=== PATIENT | male | born 2005 | race Two or more races ===

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

== ENCOUNTER 2024-01-01 08:29 | Outpatient (OUT) | payer BC, SELFPAY ==
--- NOTE | 2024-01-01 08:36 | FL_ITS ---
The [address] [address] Patient Name: JOVANNY RIOS MRN: [id number] date: 2005 Sex: M Assigned Patient Location: [place] Current Patient Location: [place] Accession/Order Number: [id number] Exam Date: 01/01/2024 08:45 Report Date: 01/01/2024 11:00 At the request of: MITCHEL PERALES Procedure: FL upper GI w air PROCEDURE: FL upper GI w air, FL cineradiography COMPARISON: None. HISTORY: Chest Pain R07.9 TECHNIQUE: An air contrast upper gastrointestinal series was performed in the usual manner. Standard level fluoroscopic mode of operation utilized. FINDINGS: ESOPHAGUS:Multiple episodes of moderate gastroesophageal reflux extending to the thoracic inlet. No esophageal stricture, abnormal dilation, or appreciable mucosal irregularity. STOMACH: No obstruction, mass, or ulceration. Normal motility. DUODENUM:No ulceration or diverticulum. OTHER: Negative. FL/FL upper GI w air IMPRESSION: 1. Prominent gastroesophageal reflux. 2. Unremarkable stomach. Electronically authenticated by: RAYA YOUNG Date: 01/01/2024 11:00
--- NOTE | 2024-01-01 08:36 | FL_ITS ---
The [address] [address] Patient Name: JOVANNY RIOS MRN: [id number] date: 2005 Sex: M Assigned Patient Location: [place] Current Patient Location: [place] Accession/Order Number: [id number] Exam Date: 01/01/2024 08:45 Report Date: 01/01/2024 11:00 At the request of: MITCHEL PERALES Procedure: FL cineradiography PROCEDURE: FL upper GI w air, FL cineradiography COMPARISON: None. HISTORY: Chest Pain R07.9 TECHNIQUE: An air contrast upper gastrointestinal series was performed in the usual manner. Standard level fluoroscopic mode of operation utilized. FINDINGS: ESOPHAGUS:Multiple episodes of moderate gastroesophageal reflux extending to the thoracic inlet. No esophageal stricture, abnormal dilation, or appreciable mucosal irregularity. STOMACH: No obstruction, mass, or ulceration. Normal motility. DUODENUM:No ulceration or diverticulum. OTHER: Negative. FL/FL cineradiography IMPRESSION: 1. Prominent gastroesophageal reflux. 2. Unremarkable stomach. Electronically authenticated by: RAYA YOUNG Date: 01/01/2024 11:00
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
== END 2024-01-01 08:30 | disposition home or self-care (01) ==
LOC: FL 08:30
PROVIDERS: PCP Family Medicine; Visit Provider Family Medicine
DX: R07.9 Chest pain, unspecified (principal); K21.9 Gastro-esophageal reflux disease without esophagitis
CPT/HCPCS: 74246; 76120